=== PATIENT | female | born 1970 | race Caucasian/White ===

== ENCOUNTER 2016-06-07 22:34 | Emergency (ER) | payer BC ==
--- NOTE | 2016-06-08 00:01 | DIAGNOSTIC IMAGING REPORT ---
PROCEDURE: XR CHEST 2 VIEW INDICATION: SHORTNESS OF BREATH, initial encounter TECHNIQUE: PA and lateral view. COMPARISON: None. FINDINGS: Lungs are clear. Cardiovascular structures are normal. Bony thorax is unremarkable. IMPRESSION: 1. Negative chest.
--- NOTE | 2016-06-08 01:14 | ED CLINICAL REPORT ---
Clinical Report - Physicians/Mid Levels [facility] [address] [place] [address] 06/07/2016 22:36 Patient: HEATHER REYNAGA Time Seen: 22:46. Arrived- By private vehicle. Historian- patient. HISTORY OF PRESENT ILLNESS Chief Complaint: FEVER, CHILLS and "NOT FEELING WELL". "HURTS ALL OVER". This started yesterday and is still present. The patient has had muscle aches and fatigue. No loss of appetite, chest pain, dyspnea, cough or decreased oral intake. No diarrhea, altered mental status, skin breakdown noted or rash or joint pain. No decreased urine output. Additional history - No known contact with a sick individual. She is not immunocompromised. No organ transplant. No history of cancer. No drug use. No alcohol recently. No Mccain catheter. Similar symptoms previously: Recent medical care: Not recently seen/assessed. REVIEW OF SYSTEMS No anorexia, weight loss, palpitations, calf pain or sputum production. No nausea, constipation, black stools, difficulty with urination or flank pain. No vomiting, headache, sinus pain, easy bruising or enlarged lymph nodes. No neck pain or back pain. The patient has had a sore throat. Denies current . All systems otherwise negative, except as recorded above. PAST HISTORY Problems: Fibromyalgia. Hypertension. Additional Surgeries: . Dilatation & Curettage. Hysterectomy. Oophorectomy. Medications: BP med x2 doesn't know names (atiya garcia). ASA Oral 81mg takes in am . Allergies: Sulfa Antibiotics. SOCIAL HISTORY Smoker- current status unknown. History of drug use: marijuana. No alcohol use. ADDITIONAL NOTES The nursing notes have been reviewed. PHYSICAL EXAM Vital Signs: 06/07/2016 22:51 BP: 180/90. HR: 78. RR: 20. O2 saturation: 96%. Temp: 98.8 F. Pain level now: 6/10. Have been reviewed. Appearance: Alert. No acute distress. (PT appears mildly uncomfortable.). Eyes: Pupils equal, round and reactive to light. Eyes normal inspection. ENT: Nose normal. Pharynx normal. Neck: Normal inspection. CVS: Normal heart rate and rhythm. Heart sounds normal. Pulses normal. Respiratory: No respiratory distress. Breath sounds normal. Abdomen: Soft and nontender. Obese. Back: Normal inspection. Skin: Skin warm and dry. Normal skin color. No rash. Normal skin turgor. Extremities: Extremities exhibit normal ROM. Extremities nontender. Neuro: Oriented X 3. No motor deficit. No sensory deficit. LABS, X-RAYS, AND EKG Chest X-ray: No acute disease. Normal lung markings present. Normal heart size. Mediastinum normal. Great vessels normal. Soft tissues normal. No infiltrate. No fracture. No bony lesion present. Views: PA and lateral. Technique: good. The X-rays were independently viewed by me, interpreted by the radiologist and contemporaneously by me and discussed with the radiologist. Prior films were not available for comparison. Laboratory Tests: UA-Culture if indicated: (MARYELLEN: 06/08/2016 00:20) ( [facility] 06/08/2016 00:58) Final results Test Result Flag Units (Reference) URINE COLOR YELLOW URINE APPEARANCE CLEAR URINE GLUCOSE NEGATIVE (NEGATIVE) URINE BILIRUBIN NEGATIVE (NEGATIVE) URINE KETONE NEGATIVE (NEGATIVE) URINE SPECIFIC GRAVITY 1.020 (1.010-1.030) URINE PH 6.0 (5.0-8.0) URINE PROTEIN NEGATIVE (NEGATIVE) URINE UROBILINOGEN 0.2 EU/dL (0.2-1.0) URINE NITRITE NEGATIVE (NEGATIVE) URINE BLOOD 3+ (NEGATIVE) URINE LEUK ESTERASE NEGATIVE (NEGATIVE) URINE RBC 3-5 rbc/hpf (0-1) URINE WBC 0-1 wbc/hpf (0-1) URINE EPITHELIAL CELLS RARE EPI/hpf (0-5) URINE BACTERIA NONE SEEN (NONE SEEN) URINE COMMENT CULT NOT INDICATED URINE CULTURES ARE SET-UP BASED ON THE FOLLOWING CRITERIA:POSITIVE NITRITEPOSITIVE LEUKOCYTE ESTERASEGREATER THAN 10 WHITE BLOOD CELLSMODERATE (2+) OR GREATER BACTERIA Rapid Influenza Screen: (MARYELLEN: 06/07/2016 23:00) ( [facility] 06/07/2016 23:31) Final results SPECIMEN DESCRIPTION: NASAL Test Result Flag Units (Reference) RAPID INFLUENZA SCREEN DATE: 06/07/16 INFLUENZA A: NEGATIVE SCREEN FOR INFLUENZA A INFLUENZA B: NEGATIVE SCREEN FOR INFLUENZA B . Pulse Oximetry: 06/07/2016 22:51 O2 saturation: 96%. (FIO2 - room air). Interpretation: normal. PROGRESS AND PROCEDURES Course of Care: PT was given IV fluids, Toradol, and Dilaudid, with symptomatic relief. She was worked up for potential causes of her sx, and work-up was unremarkable. Patient counseled in person regarding the patient's stable condition, test results, diagnosis and need for follow-up. Concerns were addressed. Old medical records reviewed. Disposition: Discharged. Condition: stable and improved. CLINICAL IMPRESSION Acute viral syndrome INSTRUCTIONS (Your chest x-ray and urinalysis look good. Your influenza test is negative. You most likely have one of the many flu-like viruses that are going around. This will blow over on its own in the next several days.). Warnings: GENERAL WARNINGS: Return or contact your physician immediately if your condition worsens or changes unexpectedly, if not improving as expected, or if other problems arise. Your Current Medications: CONTINUE TAKING THE FOLLOWING MEDICATIONS: ASA Oral : 81mg takes in am. BP med x2 doesn't know names (atiya garcia)*. Follow-up: Follow up with your doctor in five days if not better. Understanding of the discharge instructions verbalized by patient. (Electronically signed by Diamond Gonzalez MD 06/12/2016 8:56)
--- NOTE | 2016-06-08 01:15 | ED ORDER SUMMARY ---
..... Patient: HEATHER REYNAGA OrderSheet [facility] VisitID: [id number] [address] [place] [address] 45y, F Registration Date/Time: 06/07/2016 ORDER SHEET Weight: 108.8 kg (stated) Allergies: Sulfa Antibiotics GENERAL ORDERS: Chest 2V Urgent (22:59 06/07/2016 DDean R.N. per protocol) (Ack 23:25 OSnell) (23:40 RFay) Rapid Influenza Screen (Nasal Pharyngeal) (nasal) Urgent (23:00 06/07/2016 DDean R.N. per protocol) (Ack 23:27 OSnell) (23:28 DDean R.N.) UA-Culture if indicated Urgent (00:14 06/08/2016 Valerie DILLON) (Ack 0:20 OSnell) (1:08 DDean R.N.) MEDICATION ORDERS: IV FLUIDS: IV NS : initial bolus 1000 mL (1000 mL/hr), then none - (NOW) (00:14 06/08/2016 Valerie DILLON) (Ack 0:25 DDean R.N.) (1:08 DDean R.N.) Toradol IV 30 mg (NOW) (00:14 06/08/2016 Valerie DILLON) (Ack 0:25 DDean R.N.) (1:08 DDean R.N.) Dilaudid IV 1 mg (HIGH ALERT MEDICATION, NOW) (01:42 06/08/2016 Valerie DILLON) (1:50 EInderbitzen R.N.) ORDER SHEET NOTES: [Electronically signed by Sofia Ayala R.N. (02:12 06/08/2016)] [Electronically signed by Diamond Gonzalez MD (08:56 06/12/2016)] [Electronically locked/signed by Sofia Ayala R.N. (02:12 06/08/2016)]
--- NOTE | 2016-06-08 01:15 | ED ORDER SUMMARY ---
..... Patient: HEATHER REYNAGA OrderSheet [facility] VisitID: [id number] [address] [place] [address] 45y, F Registration Date/Time: 06/07/2016 ORDER SHEET Weight: 108.8 kg (stated) Allergies: Sulfa Antibiotics GENERAL ORDERS: Chest 2V Urgent (22:59 06/07/2016 DDean R.N. per protocol) (Ack 23:25 OSnell) (23:40 RFay) Rapid Influenza Screen (Nasal Pharyngeal) (nasal) Urgent (23:00 06/07/2016 DDean R.N. per protocol) (Ack 23:27 OSnell) (23:28 DDean R.N.) UA-Culture if indicated Urgent (00:14 06/08/2016 Valerie DILLON) (Ack 0:20 OSnell) (1:08 DDean R.N.) MEDICATION ORDERS: IV FLUIDS: IV NS : initial bolus 1000 mL (1000 mL/hr), then none - (NOW) (00:14 06/08/2016 Valerie DILLON) (Ack 0:25 DDean R.N.) (1:08 DDean R.N.) Toradol IV 30 mg (NOW) (00:14 06/08/2016 Valerie DILLON) (Ack 0:25 DDean R.N.) (1:08 DDean R.N.) Dilaudid IV 1 mg (HIGH ALERT MEDICATION, NOW) (01:42 06/08/2016 Valerie DILLON) (1:50 EInderbitzen R.N.) ORDER SHEET NOTES: [Electronically signed by Sofia Ayala R.N. (02:12 06/08/2016)] [Electronically signed by Diamond Gonzalez MD (08:56 06/12/2016)] [Electronically locked/signed by Sofia Ayala R.N. (02:12 06/08/2016)]
--- NOTE | 2016-06-08 01:15 | ED NURSING NOTES ---
Clinical Report - Nurses [facility] [address] [place] [address] 06/07/2016 22:36 Patient: HEATHER REYNAGA TRIAGE Triage time 2245. Acuity: LEVEL 3. Chief Complaint: FEVER, COUGH, SORE THROAT and BODY ACHES and (headache). --22:58 Ana Do R.N. 22:51 06/07/16. BP: 180/90. HR: 78. RR: 20. O2 saturation: 96%. Temp: 98.8 F. Pain level now: 11/15. --22:58 Ana Do R.N. Weight: 108.8 kg stated. Height/Length: 64 inches Per Patient. BMI: 41.2. --22:54 Ana Do R.N. Medications ASA Oral 81mg takes in am . --22:55 Ana Do R.N. BP med x2 doesn't know names (atiya garcia). --22:56 Ana Do R.N. Allergies Sulfa Antibiotics. --01:17 Ana Do R.N. History Arrived by private vehicle. Historian: patient. Accompanied by family. Primary physician (keenan kent). Onset. (3 days). She has had chills, fatigue, a headache and photophobia. No vomiting or diarrhea. SOCIAL HX: Light tobacco smoker (cigarette)- less than 1/2 a pack per day. History of drug use: marijuana. No alcohol use. --22:58 Ana Do R.N. PROBLEMS: Hypertension. --22:55 Ana Do R.N. Fibromyalgia. --22:58 Ana Do R.N. ADDITIONAL SURGERIES: . Dilatation & Curettage. Hysterectomy. Oophorectomy. --22:57 Ana Do R.N. Interventions ID band on patient. To treatment room. --22:58 Ana Do R.N. PHYSICAL ASSESSMENT 22:45. Ambulatory to room. Patient gowned. GENERAL / NEURO / PSYCH: Alert. Oriented X 4. Appears anxious. RESPIRATORY: Respiratory distress. Cough (green sputum). CVS: Capillary refill less than 2 seconds. GI / : Abdomen soft. SKIN: Skin is warm and dry. --22:59 Ana Do R.N. NURSING PROGRESS NOTES 22:45. Patient gowned. Head of bed elevated. Reassurance given. Patient identifiers checked. Call light placed in reach. Side rails up. Bed placed in lowest position. Patient ready for evaluation- chart flagged and notification provided. --22:58 Ana Do R.N. 23:04 06/07/16. Patient ID band checked for patient name: patient confirmed. Flu swab obtained by RN via nasal pharyngeal swab. Labeled in the presence of the patient and sent to lab. --23:04 Ana Do R.N. 23:20. Patient transported to radiology by stretcher with tech. --23:47 Ana Do R.N. Patient returned from radiology by stretcher with tech. ([id number]). --23:47 Ana Do R.N. 00:20. Patient ID band checked for patient name and birthdate: patient confirmed. Clean catch urine collected with return of yellow-colored clear urine; sample sent to lab for urinalysis and culture. Specimen labeled in the presence of the patient. --01:05 Ana Do R.N. 00:20 06/08/16. BP: 128/66. HR: 65. RR: 20. O2 saturation: 95% on room air. Temp: deferred. Pain level now: 11/15. --01:06 Ana Do R.N. 00:40 06/08/2016 Site #1 started via IV in the right antecubital space with an 20g angiocath, with aseptic technique and good blood return; one attempt. Blood drawn: rainbow set. Labeled in the presence of the patient and sent to the lab. Saline lock flushed with 10 mL saline. --01:07 Ana Do R.N. 00:40 06/08/2016 Started bag #1 1000 mL IV Fluids IV NS (Saline); at 1000 mL/hr over 1 hour(s) via site #1 via IV pump. IV patency established. IV site checked: no pain, redness, or swelling. IV flushed thoroughly pre- and post-medication administration. --01:08 Ana Do R.N. 00:43 06/08/2016 Toradol IVP 30 mg given over 1 minute(s) via site #1. IV patency established. IV site checked: no pain, redness, or swelling. IV flushed thoroughly pre- and post-medication administration. IVP given by RN. --01:08 Ana Do R.N. 01:00 06/08/16. BP: 132/65. HR: 65. RR: 18. O2 saturation: 95% on room air. Temp: deferred. Pain level now: 6/10. Additional comments: resting quietly, at bedside. . --01:09 Ana Do R.N. 01:15 06/08/16. Care transferred and report given (LUISA Bennett). --01:15 Ana Do R.N. 01:48 06/08/2016 Dilaudid (HYDROmorphone HCl PF) IVP 1 mg given over 1 minute(s) via site #1. Allergies verified, confirmed 5 rights and sedative warning given to the patient and patient's family. IV patency established. IV site checked: no pain, redness, or swelling. IV flushed thoroughly pre- and post-medication administration. IVP given by RN. --01:50 Alejandrina Rivera R.N. DISPOSITION / DISCHARGE 02:11 06/08/2016 Site #1 removed upon discharge. Bandaid applied. --02:11 Sofia Ayala R.N. 02:11 06/08/2016 IV Fluids IV NS Discontinued: bag #1 completed upon admission. Total amount infused: 1000ml mL. IV patency established. IV site checked: no pain, redness, or swelling. IV flushed thoroughly. --02:11 Sofia Ayala R.N. Departure time: 02:12 Jun 08 2016. No learning barriers present. Discharge instructions provided and reviewed with the patient. Reviewed medication(s). Patient verbalized understanding. Written instructions provided in Palau[place]. The patient was discharged by the physician. She was discharged home and accompanied by spouse. She left the Emergency Department ambulatory and via private vehicle. Spouse driving. --02:12 Sofia Ayala R.N. 02:10 06/08/16. BP: 103/54. HR: 63. RR: 18. O2 saturation: 95% on room air. --02:12 Sofia Ayala R.N. 01:00 06/08/16. BP: 132/65. HR: 65. RR: 18. O2 saturation: 95% on room air. Temp: deferred. Pain level now: 11/15. Additional comments: resting quietly, at bedside. . 00:20 06/08/16. BP: 128/66. HR: 65. RR: 20. O2 saturation: 95% on room air. Temp: deferred. Pain level now: 11/15. 22:51 06/07/16. BP: 180/90. HR: 78. RR: 20. O2 saturation: 96%. Temp: 98.8 F. Pain level now: 11/15. --02:12 Sofia Ayala R.N. Locked/Released at 06/08/2016 2:12 by Sofia Ayala R.N.
--- NOTE | 2016-06-12 08:56 | ED MAR SUMMARY ---
..... Medication Administration Record [facility] [address] [place] [address] Patient: HEATHER REYNAGA Visit ID: [id number] 45y, F Weight: 108.8 kg Height/Length: 64 in BMI: 41.2 ALLERGIES: Sulfa Antibiotics Start 00:40 06/08/2016 Ana Do RJayleen, Stop 02:11 06/08/2016 Sofia Ayala R.N. Medication Administered: IV NS (SALINE), Dose: IV Fluids over 1 hour(s), Rate: 1000 mL/hr, Dispensed: 1000 mL bag, Site: #1 right AC. Medication Ordered: IV NS : initial bolus 1000 mL (1000 mL/hr), then none - (NOW). Given 00:43 06/08/2016 Ana Do R.N. Medication Administered: TORADOL [IVP], Dose: 30 mg IVP over 1 minute(s), Site: #1 right AC. Medication Ordered: Toradol IV 30 mg (NOW). Given 01:48 06/08/2016 Alejandrina Rivera R.N. Medication Administered: DILAUDID [IVP] (HYDROMORPHONE HCL PF), Dose: 1 mg IVP over 1 minute(s), Site: #1 right AC. Medication Ordered: Dilaudid IV 1 mg (HIGH ALERT MEDICATION, NOW).
--- NOTE | 2016-06-12 08:56 | ED MAR SUMMARY ---
..... Medication Administration Record [facility] [address] [place] [address] Patient: HEATHER REYNAGA Visit ID: [id number] 45y, F Weight: 108.8 kg Height/Length: 64 in BMI: 41.2 ALLERGIES: Sulfa Antibiotics Start 00:40 06/08/2016 Ana Do RJayleen, Stop 02:11 06/08/2016 Sofia Ayala R.N. Medication Administered: IV NS (SALINE), Dose: IV Fluids over 1 hour(s), Rate: 1000 mL/hr, Dispensed: 1000 mL bag, Site: #1 right AC. Medication Ordered: IV NS : initial bolus 1000 mL (1000 mL/hr), then none - (NOW). Given 00:43 06/08/2016 Ana Do R.N. Medication Administered: TORADOL [IVP], Dose: 30 mg IVP over 1 minute(s), Site: #1 right AC. Medication Ordered: Toradol IV 30 mg (NOW). Given 01:48 06/08/2016 Alejandrina Rivera R.N. Medication Administered: DILAUDID [IVP] (HYDROMORPHONE HCL PF), Dose: 1 mg IVP over 1 minute(s), Site: #1 right AC. Medication Ordered: Dilaudid IV 1 mg (HIGH ALERT MEDICATION, NOW).
--- NOTE | 2016-06-12 08:56 | ED MED RECONCILIATION SUMMARY ---
Patient: HEATHER REYNAGA Medication Reconciliation Report [facility] VisitID: [id number] [address] [place] [address] 45y, F Registration Date/Time: 06/07/2016 Weight: 108.8 kg Height/Length: 64 in. BMI: 41.2 ALLERGIES: Sulfa Antibiotics The patient's Home Medications are listed below: CONTINUE TAKING THE FOLLOWING MEDICATIONS: ASA Oral 81mg takes in am BP med x2 doesn't know names (atiya tri laniersantos) The source(s) of the original Home Medication information: Not obtained. The following Medications were given to the patient in the Emergency Department: Toradol [IVP] IVP 30 mg, administered: 06/08/2016 12:43:00 AM IV NS IV Fluids bolus 0, then 1000 mL/hr, administered: 06/08/2016 12:40:00 AM Dilaudid [IVP] IVP 1 mg, administered: 06/08/2016 1:48:00 AM The following Medications were prescribed to the patient: None.
--- NOTE | 2016-06-12 08:56 | ED DISCHARGE INSTRUCTIONS ---
Patient: HEATHER REYNAGA General Instructions [facility] VisitID: [id number] [address] [place] [address] 45y, F Registration Date/Time: 06/07/2016 Acute viral syndrome INSTRUCTIONS (Your chest x-ray and urinalysis look good. Your influenza test is negative. You most likely have one of the many flu-like viruses that are going around. This will blow over on its own in the next several days.). Warnings: GENERAL WARNINGS: Return or contact your physician immediately if your condition worsens or changes unexpectedly, if not improving as expected, or if other problems arise. Your Current Medications: CONTINUE TAKING THE FOLLOWING MEDICATIONS: ASA Oral : 81mg takes in am. BP med x2 doesn't know names (atiya pilarsantos yannicksantos)*. Follow-up: Follow up with your doctor in five days if not better. Understanding of the discharge instructions verbalized by patient. ADDITIONAL INFORMATION Viral Syndrome (Adult) A viral illness may cause a number of symptoms. The symptoms depend on the part of the body that the virus affects. If it settles in the nose, throat, and lungs, it may cause cough, sore throat, congestion, and sometimes headache. If it settles in the stomach and intestinal tract, it may cause vomiting and diarrhea. Sometimes it causes vague symptoms like "aching all over," feeling tired, loss of appetite, or fever. A viral illness usually lasts1 to 2 weeks, but sometimes it lasts longer. In some cases, a more serious infection can look like a viral syndrome in the first few days of the illness. You may need anotherexam and additional teststo know the difference.Watch for the warning signs listed below. Home care Follow these guidelines for taking care of yourself at home: If symptoms are severe, rest at home for the first 2 to 3 days. Stay away from cigarette smoke - both your smoke and the smoke from others. You may useacetaminophen or ibuprofen for fever, muscle aching, and headache, unless another medicine was prescribed for this.If you have chronic liver or kidney disease or ever had a stomach ulcer or GI bleeding, talk with your doctor before using these medicinesNo one who is younger than 18 and ill with a fever should take aspirin. It may cause severe liver damage. Your appetite may be poor, so a light diet is fine. Avoid dehydration by drinking 8 to 12 8-ounce glasses of fluids each day. This may include water; orange juice; lemonade; apple, grape, and cranberry juice; clear fruit drinks; electrolyte replacement and sports drinks; and decaffeinated teas and coffee. If you have been diagnosed with a kidney disease, ask your doctor how much and what types of fluids you should drink to prevent dehydration. If you have kidney disease, drinking too much fluid can cause it build up in the your body and be dangerous to your health. Fzso-crw-mwkxhnp remedies won't shorten the length of the illness but may be helpful forcough, sore throat; and nasal and sinus congestion. Don't use decongestants if you have high blood pressure. Follow-up care Follow up with your health care provider if you do not improve over the next week. When to seek medical care Get prompt medical attention if any of these occur: Cough with lots of colored sputum (mucus) or blood in your sputum Chest pain, shortness of breath, wheezing, or difficulty breathing Severe headache; face, neck, or ear pain Severe, constant pain in the lower right side of your belly (abdominal) Continued vomiting (cant keep liquids down) Frequent diarrhea (more than 5 times a day); blood (red or black color) or mucus in diarrhea Feeling weak, dizzy, or like you are going to faint Extreme thirst Fever of 100.4 F (38 C) oral or higher, not better with fever medication Convulsion You have been given the following additional information: Viral Syndrome (Adult) (Electronically signed by Diamond Gonzalez MD 06/12/2016 8:56)
--- NOTE | 2016-06-12 08:56 | ED MED RECONCILIATION SUMMARY ---
Patient: HEATHER REYNAGA Medication Reconciliation Report [facility] VisitID: [id number] [address] [place] [address] 45y, F Registration Date/Time: 06/07/2016 Weight: 108.8 kg Height/Length: 64 in. BMI: 41.2 ALLERGIES: Sulfa Antibiotics The patient's Home Medications are listed below: CONTINUE TAKING THE FOLLOWING MEDICATIONS: ASA Oral 81mg takes in am BP med x2 doesn't know names (atiya tri lnaiersantos) The source(s) of the original Home Medication information: Not obtained. The following Medications were given to the patient in the Emergency Department: Toradol [IVP] IVP 30 mg, administered: 06/08/2016 12:43:00 AM IV NS IV Fluids bolus 0, then 1000 mL/hr, administered: 06/08/2016 12:40:00 AM Dilaudid [IVP] IVP 1 mg, administered: 06/08/2016 1:48:00 AM The following Medications were prescribed to the patient: None.
== END 2016-06-08 02:12 | disposition home or self-care (01) ==
LOC: ED SRH 22:34
DX: B34.9 Viral infection, unspecified (principal); I10 Essential (primary) hypertension; F17.210 Nicotine dependence, cigarettes, uncomplicated
CPT/HCPCS: 90004; 91400